=== PATIENT | female | born 1940 | race Asian ===

== ENCOUNTER 2023-04-01 16:15 | Emergency (ER) | payer MEDICARE, OTHER ==
[~2023-04-01 16:15] MED LIST: ATOR10TA69 PO; DOCU100C33 PO; LEVO25TA9 PO; OMEP20 PO; POLY17PO47 PO
[2023-04-01 16:54] LABS: B-TYPE NATRIURETIC PEPTIDE 97 pg/mL (0-100)
[2023-04-01 17:02] LABS: MEAN CORPUSCULAR HEMOGLOBIN 27.8 pg (26.0-34.0); MEAN CORPUSCULAR HGB CONC 31.3 G/dL (31.0-37.0); MEAN CORPUSCULAR VOLUME 89 fL (80-100); PLATELET COUNT (AUTO) 161 K/uL (150-450); RED CELL DISTRIBUTION WIDTH 19.6 % (11.5-14.5)
[2023-04-01 17:10] LABS: TROPONIN I-HIGH SENSITIVITY 25 ng/L (<51)
[2023-04-01 17:13] LABS: ANION GAP 23 mmol/L (8-16); CALCIUM, TOTAL 7.7 mg/dL (8.8-10.5); CARBON DIOXIDE 20 mmol/L (22-29); CHLORIDE 106 mmol/L (98-107); CREATININE 3.75 mg/dL (0.60-1.30); GLOMERULAR FILTR. RATE CALC 12 mL/min (>60); GLUCOSE,RANDOM 254 mg/dL (70-110); POTASSIUM 5.6 mmol/L (3.5-5.1); SODIUM SERUM 149 mmol/L (136-145); UREA NITROGEN, BLOOD 94 mg/dL (7-18)
[2023-04-01 17:19] LABS: HEMATOCRIT 15.1 % (36-46); HEMOGLOBIN 4.7 g/dL (12.0-16.0)
[2023-04-01 17:30] LABS: ALBUMIN 1.6 g/dL (3.4-5.0); ALKALINE PHOSPHATASE 117 U/L (46-116); BILIRUBIN,TOTAL 0.7 mg/dL (0.1-1.0); LIPASE 49 U/L (16-77); TOTAL PROTEIN, SERUM 4.1 g/dL (6.4-8.2)
[2023-04-01 17:40] LABS: LACTIC ACID 14.8 mmol/L (0.4-2.0)
[2023-04-01 17:45] LABS: PATHOLOGY REVIEW, DIFF YES
[2023-04-01 17:48] LABS: BAND NEUTROPHILS % (MANUAL) 6 % (0-5); BASOPHILS % (MANUAL) 1 % (0-2); LYMPHOCYTES % (MANUAL) 33 % (22-44); METAMYELOCYTES % 4 % (0-0); MONOCYTES % (MANUAL) 2 % (2-9); MYELOCYTES % 2 % (0-0); SEGMENTED NEUTROPHILS % 52 % (40-70); TOTAL CELLS COUNTED 100
[2023-04-01 18:15] LABS: ALANINE AMINOTRANSFERASE 6216 U/L (12-78); ASPARTATE AMINOTRANSFERASE 6397 U/L (15-37)
== END 2023-04-01 22:33 ==
LOC: EMS 16:17
DX: I46.9 Cardiac arrest, cause unspecified (principal); D64.9 Anemia, unspecified; N19 Unspecified kidney failure; C79.89 Secondary malignant neoplasm of other specified sites; E78.00 Pure hypercholesterolemia, unspecified; I10 Essential (primary) hypertension; Z98.890 Other specified postprocedural states
CPT/HCPCS: 31500; 80053; 83605; 83690; 83880; 84484; 85025; 99152; 99291